=== PATIENT | male | born 1960 | race Caucasian/White ===

== ENCOUNTER 2024-08-27 11:03 | Day surgery (SDC) | payer MEDICARE, MEDICAID, SELFPAY ==
[2024-08-25 11:49] VITALS: BMI 37.3
--- NOTE | 2024-08-26 07:00 | EKG_ITS ---
[facility] Test Date: 2024-08-26 Pat Name: WINIFRED MCCOY Department: Room: - Gender: Male Command And Control: PETER : 1960 Requested By: Thony Loza Order Number: [id number] Reading MD: Thony Loza Measurements Intervals [place] Rate: 80 P: 217 UT: 167 QRS: 30 QRSD: 172 T: 32 QT: 403 QTc: 466 Interpretive Statements ELECTRONIC ATRIAL PACEMAKER ELECTRONIC VENTRICULAR PACEMAKER MARKED ST ELEVATION, CONSIDER INFERIOR INJURY ACUTE [place] Compared to ECG 04/17/2018 06:15:45 ST (T wave) deviation now present Sinus rhythm no longer present First degree AV block no longer present Incomplete right bundle-branch block no longer present T-wave abnormality no longer present Possible ischemia no longer present Myocardial infarct finding still present /[id number]/[email or web address]/[id number].pdf
[2024-08-26 11:38] LABS: Basophils # (Auto) 0.1 Thou/mm3 (0.0-0.2); Basophils % (Auto) 2 % (0-2.5); Eosinophils # (Auto) 0.2 Thou/mm3 (0.0-0.5); Eosinophils % (Auto) 3 % (0-10); Hematocrit 49.4 % (41.0-53.0); Immature Granulocytes % (Auto) 0 % (0-0); Immature Granulocytes Auto 0.01 Thou/mm3 (0.00-0.00); Lymphocytes # (Auto) 2.2 Thou/mm3 (1.0-4.8); Lymphocytes % (Auto) 42 % (10-50); Mean Corpuscular HGB Conc 32.4 g/dl (31.0-37.0); Mean Corpuscular Hemoglobin 25.9 pg (25.0-35.0); Mean Corpuscular Volume 80 fL (80-100); Monocytes # (Auto) 0.5 Thou/mm3 (0.0-0.8); Monocytes % (Auto) 10 % (0-12); Neutrophils # (Auto) 2.2 Thou/mm3 (1.8-7.7); Neutrophils % (Auto) 43 % (37-80); Nucleated Red Blood Cell % 0 /100 WBC (0); Platelet Count 214 Thou/mm3 (140-440); RDW Standard Deviation 46.8 fL (35.1-43.9); Red Blood Count 6.17 Miln/mm3 (4.50-5.90); White Blood Count 5.1 Thou/mm3 (3.8-10.6)
[2024-08-26 11:42] LABS: Anion Gap 8 (7-16); BUN/Creatinine Ratio 17 Ratio (12-20); Blood Urea Nitrogen 25 mg/dL (9-23); Carbon Dioxide 35.4 mMol/L (20.0-31.0); Chloride 95 mMol/L (98-107); Creatinine (Component) 1.5 mg/dL (0.6-1.3); Estimated Creatinine Clearance 61.3 mL/min (>60); Glucose 81 mg/dL (74-106); Osmolality,Calculated 279 (275-295); Potassium 3.4 mMol/L (3.4-5.1); Sodium 138 mMol/L (136-145); eGFR 51 See Note
[2024-08-26 11:58] LABS: INR 1.1 (0.9-1.3); Partial Thromboplastin Time 28.5 Seconds (22.0-36.0); Prothrombin Time 11.6 Seconds (9.0-12.2)
[2024-08-27] VITALS (8 sets, daily range): BP systolic 113–162; BP diastolic 60–89; PULSE 67–80; RESP 16–161; TEMP 36.6; O2SAT 90–98
--- NOTE | 2024-08-27 14:37 | ESOP_ITS ---
Cardiac Cath Procedure Procedure Narrative Procedure date 08/27/2024 Title of the procedure Permanent pacemaker generator change Indication for the procedure This is a 64-year-old gentleman with past medical history of permanent pacemaker placement Patient's pacemaker was checked and found to be reached elective replacement interval Therefore generator change was scheduled Procedure This is done in the cardiac lab under continue electrocardiographic monitoring Intermittent blood pressure monitoring syndrome aseptic condition 1% lidocaine anesthesia Previously placed pacemaker pocket was incised The previous old pacemaker was explanted Explanted pacemaker [employer] implanted 12/18/2011 serial #[id number] The leads atrial lead [employer] serial #[id number] P wave was 2.5 V impedance was 487 ohms threshold was 0.7 V at 0.4 ms Ventricular lead serial #[id number] Biotronik artery was 7.2 impedance was 526 ohms threshold was 1.3@0.4 ms Both leads were connected to the new device [employer] serial #[id number] The new device was placed in the pocket Subcutaneous tissue was sutured with 2-0 Vicryl skin was secured with Dermabond patient tolerated the whole procedure well there was no complication Conclusion successful generator change
--- NOTE | 2024-08-27 14:55 | XR_ITS ---
Examination: AP chest single view Technique one AP upright portable chest single view Exam date and time: August 27, 2024 1515 hours INDICATIONS: Status post cardiac pacemaker exchange FINDINGS: Cardiac leads satisfactory position Mild prominence left ventricle Central vascular engorgement. No pneumothorax The osseous structures are intact IMPRESSION: Satisfactory position cardiac leads
[2024-08-27] MEDS: VANCOMYCIN/NS 500 MG IVPB 100 ML 100 MG IV (15:15)
== END 2024-08-27 16:40 | disposition home or self-care (01) ==
PROVIDERS: PCP Family Medicine; Referring Provider Internal Medicine; Visit Provider Internal Medicine
PROC: (CPT 33228; principal; 2024-08-27 13:00)
DX: Z45.010 Encounter for checking and testing of cardiac pacemaker pulse generator [battery] (principal); Z01.810 Encounter for preprocedural cardiovascular examination; E11.9 Type 2 diabetes mellitus without complications; I10 Essential (primary) hypertension; E78.5 Hyperlipidemia, unspecified
CPT/HCPCS: 33228; 36415; 80048; 85025; 85610; 85730; 93005; 99152; 99153; A4649; C1785; J0461; J0690; J2250; J2310; J3010; J3370; J3490

== ENCOUNTER → 2024-11-26 | Outpatient (CLI) | payer MEDICARE, MEDICAID, SELFPAY ==
[2024-11-26 10:32] LABS: Basophils # (Auto) 0.1 Thou/mm3 (0.0-0.2); Basophils % (Auto) 2 % (0-2.5); Eosinophils # (Auto) 0.2 Thou/mm3 (0.0-0.5); Eosinophils % (Auto) 3 % (0-10); Hematocrit 40.7 % (41.0-53.0); Hemoglobin 13.7 g/dL (13.5-16.0); Immature Granulocytes % (Auto) 0 % (0-0); Immature Granulocytes Auto 0.01 Thou/mm3 (0.00-0.00); Lymphocytes # (Auto) 1.9 Thou/mm3 (1.0-4.8); Lymphocytes % (Auto) 34 % (10-50); Mean Corpuscular HGB Conc 33.7 g/dl (31.0-37.0); Mean Corpuscular Hemoglobin 26.9 pg (25.0-35.0); Mean Corpuscular Volume 80 fL (80-100); Monocytes # (Auto) 0.6 Thou/mm3 (0.0-0.8); Monocytes % (Auto) 10 % (0-12); Neutrophils # (Auto) 2.9 Thou/mm3 (1.8-7.7); Neutrophils % (Auto) 51 % (37-80); Nucleated Red Blood Cell % 0 /100 WBC (0); Platelet Count 183 Thou/mm3 (140-440); RDW Standard Deviation 45.1 fL (35.1-43.9); Red Blood Count 5.09 Miln/mm3 (4.50-5.90); White Blood Count 5.7 Thou/mm3 (3.8-10.6)
[2024-11-26 10:41] LABS: Glucose Estimated Average 108 mg/dL (80-131); Hemoglobin A1C 5.4 % Hgb (4.8-6.0)
[2024-11-26 10:46] LABS: Alanine Aminotransferase 15 U/L (10-49); Albumin, Serum 4.4 gm/dL (3.4-4.8); Alkaline Phosphatase 100 U/L (46-116); Anion Gap 9 (7-16); Aspartate Amino Transferase 27 U/L (0-34); BUN/Creatinine Ratio 16 Ratio (12-20); Bilirubin,Direct 0.2 mg/dL (0.0-0.3); Bilirubin,Total 0.8 mg/dL (0.3-1.2); Blood Urea Nitrogen 23 mg/dL (9-23); Carbon Dioxide 33.1 mMol/L (20.0-31.0); Cardiac Risk Estimate 2.6 RATIO (4.0-6.7); Chloride 96 mMol/L (98-107); Cholesterol 137 mg/dL (132-200); Creatinine (Component) 1.4 mg/dL (0.6-1.3); Glucose 83 mg/dL (74-106); HDL Cholesterol 52 mg/dL (40-60); LDL Cholesterol,Calculated 65 mg/dL (0-130); Osmolality,Calculated 278 (275-295); Potassium 4.2 mMol/L (3.4-5.1); Sodium 138 mMol/L (136-145); Triglycerides 100 mg/dL (30-150); eGFR 56 See Note
[2024-11-26 10:54] LABS: Creatinine MALB Rnd Ur 54 mg/dL (30-125); Microalbumin, Random Urine < 3 mg/L (0-300)
== END | disposition home or self-care (01) ==
LOC: COPL 09:29
PROVIDERS: PCP Family Medicine; Referring Provider Family Medicine; Visit Provider Family Medicine
DX: E11.9 Type 2 diabetes mellitus without complications (principal); M51.9 Unspecified thoracic, thoracolumbar and lumbosacral intervertebral disc disorder; I25.10 Atherosclerotic heart disease of native coronary artery without angina pectoris
CPT/HCPCS: 36415; 80048; 80061; 80076; 82043; 82570; 83036; 85025

== ENCOUNTER → 2024-12-10 | Outpatient (CLI) | payer MEDICARE, MEDICAID, SELFPAY | END | disposition home or self-care (01) | PROVIDERS: Visit Provider Surgery | DX: I96 Gangrene, not elsewhere classified (principal); S91.101A Unspecified open wound of right great toe without damage to nail, initial encounter; S91.104A Unspecified open wound of right lesser toe(s) without damage to nail, initial encounter; X58.XXXA Exposure to other specified factors, initial encounter; L02.611 Cutaneous abscess of right foot; M86.8X7 Other osteomyelitis, ankle and foot; E11.52 Type 2 diabetes mellitus with diabetic peripheral angiopathy with gangrene; E11.3299 Type 2 diabetes mellitus with mild nonproliferative diabetic retinopathy without macular edema, unspecified eye; E11.40 Type 2 diabetes mellitus with diabetic neuropathy, unspecified; Z79.85 Long-term (current) use of injectable non-insulin antidiabetic drugs; I25.10 Atherosclerotic heart disease of native coronary artery without angina pectoris; I10 Essential (primary) hypertension | CPT/HCPCS: 11042; 10060; 99213; A9270; G0463 ==

== ENCOUNTER → 2024-12-10 | Outpatient (CLI) | payer MEDICARE, MEDICAID, SELFPAY ==
--- NOTE | 2024-12-10 09:36 | XR_ITS ---
Examination: Foot, right, 3 views Technique: AP, oblique, lateral views foot, 3 views Date and time of exam: December 10, 2024 0941 hours INDICATIONS: Right foot swelling and pain beginning 3 weeks ago. FINDINGS: Erosions at the first metatarsophalangeal joint Severe osteopenia No fracture Old fracture deformity fifth metatarsal IMPRESSION: Osteomyelitis first metatarsophalangeal joint
== END | disposition home or self-care (01) ==
LOC: CDIM 14:54 → SLDO 15:22
PROVIDERS: PCP Family Medicine; Referring Provider Surgery; Visit Provider Radiology Diagnostic Radiology
DX: M86.8X7 Other osteomyelitis, ankle and foot (principal); I10 Essential (primary) hypertension; E11.3499 Type 2 diabetes mellitus with severe nonproliferative diabetic retinopathy without macular edema, unspecified eye
CPT/HCPCS: 73630; 87070; 87075; 87077; 87186; 87205

== ENCOUNTER → 2024-12-17 | Outpatient (CLI) | payer MEDICARE, SELFPAY | END | disposition home or self-care (01) | LOC: SWHD 08:40 | PROVIDERS: PCP Family Medicine; Referring Provider Family Medicine; Visit Provider Surgery | DX: I96 Gangrene, not elsewhere classified (principal); S91.101A Unspecified open wound of right great toe without damage to nail, initial encounter; S91.104A Unspecified open wound of right lesser toe(s) without damage to nail, initial encounter; S91.301A Unspecified open wound, right foot, initial encounter; X58.XXXA Exposure to other specified factors, initial encounter; L02.611 Cutaneous abscess of right foot; M86.8X7 Other osteomyelitis, ankle and foot; E11.52 Type 2 diabetes mellitus with diabetic peripheral angiopathy with gangrene; E11.3299 Type 2 diabetes mellitus with mild nonproliferative diabetic retinopathy without macular edema, unspecified eye; E11.40 Type 2 diabetes mellitus with diabetic neuropathy, unspecified; Z79.85 Long-term (current) use of injectable non-insulin antidiabetic drugs; I25.10 Atherosclerotic heart disease of native coronary artery without angina pectoris; I10 Essential (primary) hypertension | CPT/HCPCS: 99214; A9270; G0463 ==